=== PATIENT | female | born 1985 | race Caucasian/White ===

== ENCOUNTER 2017-08-23 19:52 | Inpatient (IN) | payer OTHER ==
[2017-08-23 20:32] VITALS: BMI 30.5
[2017-08-23] MEDS ORDERED: Lactated Ringer's 1,000 ML IV SCH ×2 (20:45→22:00)
[2017-08-23 22:12] LABS: BASO # 0.1 K/uL (0.0-0.2); BASO % 0.7 % (0.0-2.0); EOS # 0.1 K/uL (0.0-0.7); EOS % 1.2 % (0.0-4.0); HEMOGLOBIN 11.9 g/dL (12.0-16.0); LYMPH % 25.4 % (20.0-40.0); MEAN CELL VOLUME 88.9 fl (81.0-99.0); MEAN CORPUSCULAR HGB CONC 32.7 g/dL (33.0-37.0); MEAN PLATELET VOLUME 11.7 fl (7.2-11.7); MONO # 0.6 K/uL (0.0-0.8); MONO % 7.8 % (0.0-10.0); NEUT # 5.2 K/uL (1.8-7.0); NEUT % 64.9 % (50.0-75.0); NRBC % 0.1 % (0.0-0.0); RBC 4.11 Mil/uL (3.80-5.20); RED CELL DISTRIBUTION WIDTH 14.1 % (11.5-14.5)
[2017-08-23] MEDS: Lactated Ringer's 1,000 ML IV SCH (23:31)
[2017-08-23] MEDS ORDERED: Fentanyl/Bupivacaine HCl 250 ML EPI ONE (23:46)
[2017-08-24] MEDS: Lactated Ringer's 1,000 ML IV SCH (00:18)
[2017-08-24] MEDS ORDERED: Oxytocin 30 UNITS in Sodium Chloride 0.9% 500 ML IV SCH (00:45)
[2017-08-24] MEDS ORDERED: Lidocaine 1% Inj (20ml) ONE (11:55)
--- NOTE | 2017-08-24 15:34 | OBDS ---
DELIVERY PERSONNEL Delivery Doctor: Nahomi Cadena MD Plant Guard: Krystyna Jacobo RN MATERNAL INFORMATION Delivery Anesthesia: Local; Epidural Medications in Delivery: pitocin Estimated Blood Loss (ml): 350 ml Placenta Cultured: No Maternal Complications: None Provider Comments: deliver of live baby boy 9/9 clear fluid placenta intact midline episiotmy and repair ebl 350ml LABOR SUMMARY EDC: 08/24/2017 00:00 No. Babies in Womb: 1 Labor Anesthesia: Epidural LABOR INFORMATION Reason for Induction: Not Applicable Onset of Labor: 08/23/2017 19:40 Complete Dilatation: 08/24/2017 10:42 Oxytocin: Augmentation Group B Beta Strep: Negative Steroids Given: None Reason Steroids Not Administered: Not Applicable MEMBRANES Membranes Rupture Method: Spontaneous Rupture of Membranes: 08/23/2017 19:40 Length of Rupture (hrs): 19.18 Amniotic Fluid Color: Clear Amniotic Fluid Amount: Moderate Amniotic Fluid Odor: Normal STAGES OF LABOR Stage 1 hrs: 15 Stage 1 min: 2 Stage 2 hrs: 4 Stage 2 min: 9 Stage 3 hrs: 0 Stage 3 min: 9 Total Time in Labor hrs: 19 Total Time in Labor min: 20 VAGINAL DELIVERY Episiotomy: Median Laceration Extension: N/A Laceration Type: None Laceration Repair: Yes Laceration Repair Note: repair of midline episiotomy with 2-0 chromic no laceration Initial Vag Sponge Count: 5 Final Vag Sponge Count: 5 Initial Vag Sharps Count: 3 Final Vag Sharps Count: 3 Sponge Count Correct: Yes Sharps Count Correct: Yes Count Comment: correct BABY A INFORMATION Delivery Date/Time: 08/24/2017 14:51 Method of Delivery: Vaginal Born in Route : No : N/A Forceps: N/A Vacuum Extraction: N/A Shoulder Dystocia : No SHOULDER DYSTOCIA BABY A Infant Delivery Date/Time: 08/24/2017 14:51 PRESENTATION/POSITION BABY A Presentation: Cephalic PLACENTA INFORMATION BABY A Placenta Delivery Time : 08/24/2017 15:00 Placenta Method of Delivery: Spontaneous Placenta Status: Delivered SCORES BABY A Heart Rate 1 min: >100 bpm Resp Effort 1 min: Good Cry Reflex Irritability 1 min: Cough or Sneeze or Pulls Away Muscle Tone 1 min: Active Motion Color 1 min: Body [place], Extremities Blue Resuscitation Effort 1 min: Tactile Stimulation SCORE 1 MIN: 9 Heart Rate 5 min: >100 bpm Resp Effort 5 min: Good Cry Reflex Irritability 5 min: Cough or Sneeze or Pulls Away Muscle Tone 5 min: Active Motion Color 5 min: Body [place], Extremities Blue Resuscitation Effort 5 min: N/A SCORE 5 MIN: 9 INFANT INFORMATION BABY A Gestational Age at Delivery: 40.0 Gestational Status: Term Infant Outcome : Liveborn Condition : Stable Infant Sex: Male WEIGHT/LENGTH BABY A Birthweight (gms): 3705 Weight (lb): 8 Infant Weight (oz): 3 CORD INFORMATION BABY A No. Cord Vessels: 3 Nuchal Cord : N/A Cord Blood Taken: Yes Infant Suction: Mouth
[2017-08-24] MEDS ORDERED: Benzocaine/Menthol SPRAY TOP PRN (15:37)
[2017-08-24] MEDS ORDERED: Oxycodone/Acetaminophen 5/325 mg Tab PO PRN ×4 (15:37→18:15)
[2017-08-24] MEDS ORDERED: Oxytocin 30 units/LR 500ML 30 U/500 ML BAG IV ONE (16:14)
[2017-08-24] MEDS: Benzocaine/Menthol SPRAY TOP PRN (22:01)
[2017-08-25 07:25] LABS: BASO # 0.1 K/uL (0.0-0.2); BASO % 0.4 % (0.0-2.0); EOS # 0.1 K/uL (0.0-0.7); EOS % 0.9 % (0.0-4.0); HEMOGLOBIN 9.4 g/dL (12.0-16.0); LYMPH # 1.7 K/uL (1.0-4.3); LYMPH % 11.8 % (20.0-40.0); MEAN CORPUSCULAR HEMOGLOBIN 29.1 pg (27.0-31.0); MEAN CORPUSCULAR HGB CONC 32.6 g/dL (33.0-37.0); MEAN PLATELET VOLUME 10.8 fl (7.2-11.7); MONO % 6.5 % (0.0-10.0); NEUT # 11.8 K/uL (1.8-7.0); NEUT % 80.4 % (50.0-75.0); RBC 3.23 Mil/uL (3.80-5.20); RED CELL DISTRIBUTION WIDTH 14.1 % (11.5-14.5); WHITE BLOOD COUNT 14.7 K/uL (4.8-10.8)
--- NOTE | 2017-08-25 11:05 | OBPPN ---
Datetime: 08/25/2017 11:00 PP Pain Prov: Within normal limits PP Pain Prov comment: No SOB, chest or leg pains PP Nausea Prov: Denies PP Flatus Prov: Yes PP BM Prov: No PP Breasts Prov: Normal PP Lungs Prov: Normal PP Abdomen/Uterus Prov: Abnormal PP Lochia Prov: Normal PP CVA Tenderness Prov: Normal PP Extremities Prov: Normal PP C/S Incision Prov: Not Applicable PP Progress Prov: Normal PP Comments Phys Exam Prov: breast not engorged NT, abd soft ND, fundus firm below the umb NT Ext no edema or calf tenderness PP Impression Prov: Normal progression PP Plan Prov: Continue present management PP Progress Note Prov: continue PP care Start po iron OOB and ambulation IP PP Procedures: None
--- NOTE | 2017-08-26 08:27 | OBPPN ---
Datetime: 08/26/2017 08:22 PP Pain Prov: Within normal limits PP Nausea Prov: Denies PP Flatus Prov: Yes PP BM Prov: Yes PP Breasts Prov: Normal PP Heart Prov: Normal PP Lungs Prov: Normal PP Abdomen/Uterus Prov: Normal PP Lochia Prov: Normal PP Vulva/Perineum Prov: Normal PP CVA Tenderness Prov: Normal PP Extremities Prov: Normal PP Progress Prov: Normal PP Impression Prov: Normal progression PP Plan Prov: Continue present management PP Progress Note Prov: stable ppd2 continue present care IP PP Procedures: None
--- NOTE | 2017-08-26 08:36 | OBDCSUM ---
Datetime: 08/26/2017 08:32 Discharged to, Provider: Home Follow up at, Provider: Disch Instr Diet: Regular Discharge Instructions, Provider: Routine instructions given Discharge Time: 08/26/2017 08:32 Follow up in weeks, Provider: 1 week in office Disch Referrals: None Discharge Comment, Provider: dc home today rto 5-6weeks call office if any problems
[2017-08-26] MEDS: Benzocaine/Menthol SPRAY TOP PRN (11:30)
[2017-08-26 17:59] VITALS: BP 97/52; PULSE 102; RESP 20; TEMP 98.4; O2SAT 100
== END 2017-08-26 12:35 | disposition home or self-care (01) | DRG 775 ==
LOC: H.EROB2 19:52 → H.L&D 20:45 → H.OB/GYN 08-24 17:30
PROVIDERS: ADMIT Specialist; ATTEND Specialist
PROC: 4A1HXCZ Monitoring of Products of Conception, Cardiac Rate, External Approach (ICD-10-PCS; 2017-08-23)
PROC: 0W8NXZZ Division of Female Perineum, External Approach (ICD-10-PCS; principal; 2017-08-24)
DX: O48.0 Post-term pregnancy (principal); Z37.0 Single live birth; Z3A.40 40 weeks gestation of pregnancy